=== PATIENT | male | born 1980 | race Caucasian/White ===

== ENCOUNTER 2017-11-07 16:25 | Emergency (ER) | payer SELFPAY ==
--- NOTE | 2017-11-07 16:37 | Emergency Department Record ---
History of Present Illness - General Chief complaint: Male Urogenital Problem Stated complaint: TESTICLE PAIN Time Seen by Provider: 11/07/17 16:33 Source: Patient Mode of Arrival: Ambulatory Limitations: No limitations - History of Present Illness Initial comments: The patient is here due to R testicle pain for 3 weeks. The pain is sharp and stabbing and worse with movement. It intermittently radiates to the R groin. It first started when he pinched his R testicle 3 weeks ago but then it slowly improved. About a week ago the pain returned and he feels there is a lump in his R testicle. He denies any AP, nausea, vomiting, or dysuria. MD Complaint: Testicle pain Onset/Timin -: Week(s) - Related Data Previous Rx's Medication Instructions Recorded Levofloxacin [Levaquin Tab] 500 mg PO DAILY #7 tab 11/07/17 Naproxen [Naprosyn] 500 mg PO BID #14 tablet. 11/07/17 Allergies Allergy/AdvReac Type Severity Reaction Status Date / Time erythromycin ethylsuccinate Allergy VOMITING Verified 11/07/17 16:38 [From [facility] Review of Systems Constitutional: Denies: Chills, Fever Eyes: Denies: Eye discharge ENT: Denies: Congestion Respiratory: Denies: Cough, Dyspnea Past Medical History - SOCIAL HISTORY Smoking Status: Current every day smoker - RESPIRATORY Hx Respiratory Disorders: No - CARDIOVASCULAR Hx Cardio Disorders: No - NEURO Hx Neuro Disorders: No - GI Hx GI Disorders: No - Hx Genitourinary Disorders: No - ENDOCRINE Hx Endocrine Disorders: No - MUSCULOSKELETAL Hx Musculoskeletal Disorders: No - PSYCH Hx Psych Problems: No - HEMATOLOGY/ONCOLOGY Hx Hematology/Oncology Disorders: No Physical Exam - General General Appearance: Alert, Oriented x3, Cooperative, No acute distress - Head Head exam: Atraumatic, Normocephalic, Normal inspection - Eye Eye exam: Normal appearance, PERRL - Respiratory Respiratory exam: Normal lung sounds bilaterally. negative: Respiratory distress - Cardiovascular Cardiovascular Exam: Regular rate, Normal rhythm, Normal heart sounds - GI/Abdominal GI/Abdominal exam: Soft, Normal bowel sounds. negative: Tenderness - exam: Circumcision, Normal inspection, Testicular tenderness (R only.). negative: Scrotal swelling - Extremities Extremities exam: Normal inspection, Full ROM, Normal capillary refill. negative: Tenderness Course - Reevaluation(s) Reevaluation #1: The patient is doing well. I did discuss the US which did demonstrate Epididymitis. We will place the patient on Levaquin and Naprosyn and have him F/ U with his PCP next week. 11/07/17 18:44 Medical Decision Making - Data Complexity MDM Data: Labs Ordered and/or Reviewed, X-Ray Ordered and/or Reviewed - Radiology Data Radiology results: Report reviewed (Scrotal US: Neg for torsion or mass. R testicle epidymitis. small bilateral hydroceoles.) Disposition Disposition: Discharge Clinical Impression: Epididymitis Disposition: Home, Self-Care Condition: (2) Stable Instructions: Epididymitis (ED) Additional Instructions: Please take the Levaquin and Naprosyn as directed. Please see your family doctor next week for recheck. Return to the ER for any worsening symptoms. Prescriptions: Levofloxacin [Levaquin Tab] 500 mg PO DAILY #7 tab Naproxen [Naprosyn] 500 mg PO BID #14 tablet.dr Forms: Patient Portal Access Time of Disposition: 18:47 Quality - Quality Measures Quality Measures: N/A - Blood Pressure Screening View Details: Yes Does Patient Have Any of the Following: No Blood Pressure Classification: Hypertensive Reading Systolic Measurement: 125 Diastolic Measurement: 90 Screening for High Blood Pressure: < First Hypertensive BP, F/U Documented > [ G8950] First Hypertensive Follow-up Interventions: Referral to alternative/primary care provider.
[2017-11-07 16:47] LABS: URINE APPEARANCE CLEAR; URINE BILIRUBIN NEGATIVE (NEGATIVE); URINE BLOOD NEGATIVE (NEGATIVE); URINE COLOR YELLOW; URINE GLUCOSE (UA) NEGATIVE (NEGATIVE); URINE KETONE NEGATIVE (NEGATIVE); URINE LEUKOCYTE ESTERASE NEGATIVE (NEGATIVE); URINE NITRITE NEGATIVE (NEGATIVE); URINE PROTEIN NEGATIVE (NEGATIVE); URINE UROBILINOGEN 0.2 E.U./dL (0.20 - 1.00)
--- NOTE | 2017-11-08 10:14 | ULTRASOUND REPORT ---
EXAM: SCROTAL ULTRASOUND HISTORY: RIGHT TESTICULAR PAIN. SYMPTOMS FOR THE PAST WEEK. THE RIGHT SIDE OF THE SCROTUM WAS TWISTED THREE TO FOUR WEEKS AGO. PATIENT FEELS A LUMP. TECHNIQUE: Sonographic evaluation of the scrotum was performed in the standard fashion. Barrett scale, color Doppler and Duplex Doppler imaging were utilized. Comparison: None. FINDINGS: Both testes are normal in appearance and size with the right measuring 4.5 x 2.7 x 3.3 cm and the left measuring 4.6 x 2.5 x 3 cm. Both testes demonstrate normal echogenicity and echotexture. There is no testicular mass. Duplex Doppler ultrasound was performed to assess for testicular torsion. Color Doppler images show symmetric blood flow within the testes. Intratesticular spectral venous and arterial waveforms are symmetrical and demonstrate unremarkable uncorrected velocities. There is no testicular torsion. The right epididymis is enlarged and heterogeneous suggesting underlying epididymitis. There are small bilateral hydroceles. A small left varicocele is also present. The left epididymis is normal. IMPRESSION: 1. NORMAL TESTES. THERE IS NO TORSION. 2. SMALL BILATERAL HYDROCELES. 3. RIGHT EPIDIDYMITIS. 4. SMALL LEFT VARICOCELE. JOB NUMBER: [id number] MTDD
== END 2017-11-07 18:53 | disposition home or self-care (01) ==
LOC: ER 16:25
DX: N45.1 Epididymitis (principal); N43.3 Hydrocele, unspecified; F17.210 Nicotine dependence, cigarettes, uncomplicated
CPT/HCPCS: 76870; 81003; 99283; 99284

== ENCOUNTER 2019-11-08 07:29 | Emergency (ER) | payer SELFPAY ==
[2019-11-08] MEDS ORDERED: KETOROLAC 30 MG/ML VIAL IVP ONE (07:47)
[2019-11-08] MEDS ORDERED: ACETAMINOPHEN 1,000 MG/100 ML BTL IVPB ONE (07:47)
--- NOTE | 2019-11-08 07:58 | Emergency Department Record ---
History of Present Illness - General Chief Complaint: Abdominal Pain Stated Complaint: RIGHT SIDE ABD PAIN Time Seen by Provider: 11/08/19 07:39 Source: Patient Mode of Arrival: Ambulatory Limitations: No limitations - History of Present Illness Initial Comments: The patient is here due to R rib and flank pain for 2 days. The onset was after coughing hard and then developing very sharp severe pain to the R flank and rib area. The pain is sharp and stabbing and worse with any movement and breathing. The patient states it feels like when he broke a rib in the past. There has been no fever, AP, vomiting, diarrhea or L sided CP. MD Complaint: Flank pain Onset/Timin -: Days(s) Radiation: RUQ Migration to: Other Severity scale (1-10): 10 Quality: Sharp Consistency: Constant Improves With: Nothing Worsens With: Nothing Associated Symptoms: Denies other symptoms - Related Data Previous Rx's Medication Instructions Recorded Cyclobenzaprine HCl [Flexeril] 10 mg PO TID PRN #20 tablet 11/08/19 Doxycycline Monohydrate [Mondoxyne 100 mg PO BID 7 Days #14 capsule 11/08/19 Nl] Naproxen [Naprosyn] 500 mg PO BID #14 tablet. 11/08/19 Allergies Allergy/AdvReac Type Severity Reaction Status Date / Time erythromycin ethylsuccinate Allergy VOMITING Verified 11/07/17 16:38 [From [facility] Travel/Exposure Screening - Travel/Exposure Within Last 30 Days Have you traveled within the last 30 days?: No - Additonal Travel/Exposure Details Have you been exposed to anyone with a communicable illness?: No Review of Systems Constitutional: Denies: Chills, Fever Eyes: Denies: Eye discharge ENT: Denies: Congestion Respiratory: Denies: Cough, Dyspnea Cardiovascular: Denies: Chest pain Endocrine: Denies: Fatigue Gastrointestinal: Denies: Abdominal pain, Nausea Genitourinary: Denies: Dysuria Musculoskeletal: Denies: Arthralgia Neurological: Denies: Abnormal gait Past Medical History - SOCIAL HISTORY Smoking Status: Current every day smoker - RESPIRATORY Hx Respiratory Disorders: No - CARDIOVASCULAR Hx Cardio Disorders: Yes Hx Cardiac Cath: Yes Comment:: murmur - NEURO Hx Neuro Disorders: No - GI Hx GI Disorders: No - Hx Genitourinary Disorders: No - ENDOCRINE Hx Endocrine Disorders: No - MUSCULOSKELETAL Hx Musculoskeletal Disorders: No - PSYCH Hx Psych Problems: No - HEMATOLOGY/ONCOLOGY Hx Hematology/Oncology Disorders: No Family Medical History Any Significant Family History?: No Physical Exam - General General Appearance: Alert, Oriented x3, Cooperative, Mild distress (due to R flank and rib pain.) - Head Head exam: Atraumatic, Normocephalic, Normal inspection - Eye Eye exam: Normal appearance, PERRL - Neck Neck exam: Normal inspection, Full ROM. negative: Tenderness - Respiratory Respiratory exam: Normal lung sounds bilaterally, Chest wall tenderness (The pain is very reproducible with palpation of the R posterior lower ribs.). negative: Decreased breath sounds, Respiratory distress - Cardiovascular Cardiovascular Exam: Regular rate, Normal rhythm, Normal heart sounds - GI/Abdominal GI/Abdominal exam: Soft, Normal bowel sounds. negative: Tenderness - Extremities Extremities exam: Normal inspection, Full ROM, Normal capillary refill. negative: Tenderness Image of Full Body: 1 - Area of pain and tenderness. Course Vital Signs 11/08/19 07:33 Temperature 98.1 F Pulse Rate 88 Respiratory 22 Rate Blood Pressure 138/113 Pulse Ox 98 - Reevaluation(s) Reevaluation #1: The patient is doing a little better at this time. He still is having significant pain over the R posterior lower ribs and the pain continues to be 100% reproducible. We will add some new pain medicine while waiting on his UA results. 11/08/19 09:07 Reevaluation #2: The patient is doing a lot better at this time and the pain is still very reproducible with any twisting, bending or palpation. I did discuss the lab and CT reports and the need for pain medicine at home and an oral Abx. We also did discuss the need to return for any worsening symptoms. 11/08/19 09:49 Medical Decision Making - Data Complexity MDM Data: Labs Ordered and/or Reviewed, X-Ray Ordered and/or Reviewed - Lab Data Result diagrams: 11/08/19 08:00 11/08/19 08:00 - Radiology Data Radiology results: Report reviewed (Chest/Abd/Pelvis CT: Atelectasis or infiltrate R base, O/W neg for any acute changes.) Disposition Disposition: Discharge Clinical Impression: Strain of mid-back Qualifiers: Encounter type: initial encounter Qualified Code(s): S29.012A - Strain of m uscle and tendon of back wall of thorax, initial encounter Disposition: Home, Self-Care Condition: (2) Stable Instructions: Thoracic Back Strain (ED) Additional Instructions: Please rest at home with no lifting. Please take the Doxycycline as directed and use the Naprosyn and Flexeril for pain. Please see your family doctor early next week for recheck and return to the ER for any worsening pain, any cough, fever, or shortness of breath. Prescriptions: Cyclobenzaprine HCl [Flexeril] 10 mg PO TID PRN #20 tablet PRN Reason: Pain Doxycycline Monohydrate [Mondoxyne Nl] 100 mg PO BID 7 Days #14 capsule Naproxen [Naprosyn] 500 mg PO BID #14 tablet.dr Forms: Patient Portal Access Time of Disposition: 09:52 Quality - Quality Measures Quality Measures: N/A - Blood Pressure Screening View Details: Yes Does Patient Have Any of the Following: No Blood Pressure Classification: Hypertensive Reading Systolic Measurement: 137 Diastolic Measurement: 107 Screening for High Blood Pressure: < First Hypertensive BP, F/U Documented > [G8950] First Hypertensive Follow-up Interventions: Referral to alternative/primary care provider.
[2019-11-08 08:13] LABS: ABSOLUTE NEUTROPHIL COUNT 9.06; BASO % 0.2 % (0-6); EOS % 2.1 % (0-6); GRAN % 64.1 % (47-80); HEMOGLOBIN 16.8 gm/dl (14.0-18.0); LYMPH % 18.7 % (16-45); MEAN CELL VOLUME 89.9 fl (81-97); MEAN CORPUSCULAR HEMOGLOBIN 32.1 pg (27-33); MEAN CORPUSCULAR HGB CONC 35.7 g/dl (32-36); MONO % 14.9 % (0-9); PLATELET COUNT 307 K/uL (130-400); RED BLOOD COUNT 5.23 M/uL (4.40-5.70); RED CELL DISTRIBUTION WIDTH 12.9 % (11.5-14.5); WHITE BLOOD COUNT W/O DIFF 14.1 K/uL (4.2-12.2)
[2019-11-08 08:22] LABS: BLOOD UREA NITROGEN 13 mg/dL (6-20); CREATININE 0.9 mg/dL (0.7-1.2); EST GLOMERULAR FILTRATION RATE > 60 mL/min
[2019-11-08 08:23] LABS: LIPASE 38 U/L (13-60); TOTAL PROTEIN 7.9 g/dL (6.6-8.7)
[2019-11-08 08:25] LABS: GLUCOSE,RANDOM 124 mg/dL (74-109)
[2019-11-08] MEDS ORDERED: 0.9 % SODIUM CHLORIDE 1,000 ML BAG IV ONE (08:26)
[2019-11-08 08:27] LABS: ALT/SGPT 29 U/L (<41)
[2019-11-08 08:28] LABS: ALBUMIN 4.6 g/dL (4.0-5.0); ALKALINE PHOSPHATASE 39 U/L (40-129); AST/SGOT 16 U/L (10.0-50.0); BILIRUBIN,DIRECT < 0.2 mg/dL (0-0.3)
--- NOTE | 2019-11-08 08:59 | CT SCAN REPORT ---
EXAMINATION: CHEST/ABD/PEL WO CONTRAST EXAM DATE: 11/08/2019 8:32 AM TECHNIQUE: EXAMINATION: CT Chest, Abdomen and Pelvis with Contrast EXAM DATE: 11/08/2019 8:32 AM TECHNIQUE: Standard protocol CT images of the chest, abdomen and pelvis were performed without intrav enous contrast. Coronal and sagittal images were reconstructed. IV Contrast: No contrast INDICATION: R flank pain, rib pain COMPARISON: None ENCOUNTER: Not applicable CT CHEST FINDINGS: Base of Neck & Axillae: There is no adenopathy. Mediastinum & Samreen: There is no mediastinal or hilar adenopathy. Cardiovascular: The heart has a normal size. There is no pericardial effusion. The thoracic aorta an d main pulmonary artery have a normal caliber. Tracheobronchial Structures: There is no bronchial wall thickening or bronchiectasis. Lung Parenchyma: Right lower lobe infiltrate or atelectasis. Pleural Space: There are no pleural effusions. There is no pneumothorax. Chest Wall & Musculoskeletal: No suspicious bone lesions. Old ninth right rib fracture CT ABDOMEN AND PELVIS FINDINGS: Hepatobiliary: The liver has a normal size with a smooth surface. The hepatic and portal veins appear patent. Contracted gallbladder. No gallstones Pancreas: The pancreas is normal. Spleen: The spleen is not enlarged. Adrenals: The adrenal glands are normal. Kidneys, Ureters, & Bladder: Both kidneys have a normal size and there is no hydronephrosis. Both ur eters have a normal caliber and the urinary bladder is unremarkable. Gastrointestinal: Small hiatal hernia. No bowel obstruction. Normal appendix. The large bowel is nor mal. Reproductive Organs: Unremarkable Lymphatic System: There is no adenopathy within the abdomen or pelvis. Vasculature: Normal caliber abdominal aorta. Peritoneum: No free fluid, free air, or inflammation Abdominal Wall & Musculoskeletal: No suspicious bone lesions. Small fat-containing left inguinal [place] Evaluation is limited without intravenous contrast IMPRESSION: 1. Old ninth right rib fracture 2. Right lower lobe infiltrate or atelectasis 3. Small hiatal hernia 4. Small left inguinal hernia Dictated by: Tenzin Marx MD on 11/08/2019 8:45 AM. .
[2019-11-08] MEDS ORDERED: ONDANSETRON HCL IV 4 MG/2 ML VIAL IVP ONE (09:06)
[2019-11-08] MEDS ORDERED: MORPHINE SULFATE 5 MG/ML VIAL IVP ONE (09:06)
[2019-11-08 09:24] LABS: URINE APPEARANCE CLEAR; URINE BILIRUBIN NEGATIVE (NEGATIVE); URINE BLOOD NEGATIVE (NEGATIVE); URINE COLOR YELLOW; URINE GLUCOSE (UA) NEGATIVE (NEGATIVE); URINE KETONE NEGATIVE (NEGATIVE); URINE LEUKOCYTE ESTERASE NEGATIVE (NEGATIVE); URINE NITRITE NEGATIVE (NEGATIVE); URINE PROTEIN NEGATIVE (NEGATIVE); URINE UROBILINOGEN 0.2 E.U./dL (0.20 - 1.00)
== END 2019-11-08 10:00 | disposition home or self-care (01) ==
LOC: ER 07:29
DX: S29.012A Strain of muscle and tendon of back wall of thorax, initial encounter (principal); R10.11 Right upper quadrant pain; R05 Cough; X50.3XXA Overexertion from repetitive movements, initial encounter; F17.210 Nicotine dependence, cigarettes, uncomplicated
CPT/HCPCS: 99284 ×2; 96365; 96375; 83690; 85025; 80076; 80048; 81003; 71250; 74176; J1885; J2405; J7030